=== PATIENT | male | born 1990 | race Caucasian/White ===

== ENCOUNTER 2016-12-07 00:17 | Emergency (ER) | payer OTHER ==
[2016-12-07] MEDS ORDERED: NORMAL SALINE 1,000 ML IV ONE (02:51)
--- NOTE | 2016-12-07 02:52 | ERNOTE ---
Syncope ER HPI Date of Service: 12/07/16 Stated Complaint: passed out at work Time Seen by Provider: 12/07/16 02:43 Source: patient Exam Limitations: no limitations Immunizations: IMMUNIZATION HX Immunizations Up to Date Yes History of Influenza Vaccine Yes Hx Pneumococcal Vaccination No Allergies/Adverse Reactions: Allergies oxycodone HCl [From Percocet] Adverse Reaction (Verified 08/27/16 00:32) Vomiting Home Medications: HOME MEDICATIONS RX: Carbamazepine [Carbamazepine ER] 300 mg PO BID 08/27/16 [Last Taken Unknown] RX: Risperidone 1 mg PO QAM 08/27/16 [Last Taken Unknown] RX: Risperidone 1.5 mg PO HS 08/27/16 [Last Taken Unknown] buPROPion HCL [Wellbutrin XL] 150 mg PO DAILY 08/27/16 [Last Taken Unknown] Trazodone HCl [Oleptro ER] 150 mg PO HS 12/07/16 [Last Taken Unknown] - History of Present Illness Narrative: 26 year old that ate a hamburger tonight for dinner, which was his only meal for the day. He began to feel dizzy and hot, then afterwards experienced a syncopal episode. The period of LOC was unknown. Denies any pain, fevers, chill , palpitations, dyspnea, or N/V/D. He believes that he has had similar symptoms previously. Last week he had the flu. Date (Duration): 12/07/16 Time (Timing): 02:50 Prior Episodes: Present: no prior history Symptoms prior to episode: Present: none Activity at time of episode: Present: standing Character of event: Present: brief (seconds) Location of Injury: Present: none Current Symptoms: Present: back to normal Review of Systems - Review of Systems Constitutional: Present: no symptoms reported EYE: Present: no symptoms reported ENT: Present: no symptoms reported Respiratory: Present: no symptoms reported Cardiology: Present: no symptoms reported Gastrointestinal/Abdominal: Present: nausea, vomiting Genitourinary: Present: no symptoms reported Musculoskeletal: Present: no symptoms reported Skin: Present: no symptoms reported Neurological: Present: no symptoms reported Endocrine: Present: no symptoms reported Hematologic/Lymphatic: Present: no symptoms reported Psych: Present: no symptoms reported - Patient's Past Medical History Patient History - Medical: Depression Patient History - Cardiac/Respiratory: Asthma Patient History - Cancer: No Hx of Cancer Patient History - Surgical Procedures: Ear Tubes, T & A, Other Patient History - Other: None - Social History Living Situations: home Abuse History: No History of abuse Psych History: Hx of Depression Smoking Status: Current every day smoker Alcohol Use: rarely Drug Use: none - Immunizations Immunizations Up to Date: Yes Hx Pneumococcal Vaccination: No History of Influenza Vaccine: Yes Physical Exam - Physical Exam General Appearance: Present: no apparent distress Eye Exam: Normal inspection: bilateral, PERRL: bilateral Ears, Nose, Throat: Present: normal ENT inspection Neck: Present: limited range of motion Respiratory: Present: no respiratory distress Cardiovascular/Chest: Present: regular rate, rhythm Gastrointestinal/Abdominal: Present: nontender, nondistended Back Exam: Present: normal inspection, normal range of motion Extremity Exam: Present: normal inspection, normal range of motion Neurological Exam: Present: alert, oriented, normal mood/affect, 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 - Vital Signs Patient's Vital Signs:: I have reviewed the patient's vital signs. Vital Signs: Vital Signs 12/07/16 12/07/16 12/07/16 01:45 02:14 02:20 Temperature 37.1 C Pulse Rate 71 61 82 Respiratory 18 Rate Blood Pressure 128/77 127/76 O2 Sat by Pulse 98 Oximetry - EKG EKG: NSR EKG read: Interp. by me EKG Comments: normal axis - Progress/Reassessment Chief Complaint: Syncopal Episode Progress:: Improved Progress Note-Subjective: 12/07/16 04:09 Feels less dizzy after getting IV fluids. Now drinking water. Departure Clinical Impression: Syncope and collapse - Departure Disposition: Home self-care Condition: Good Instructions: Syncope, [id number] Print Language: Syriac Additional Instructions: Drink 2 liters of water today. Return to the ED as needed. Referrals: Marian Low DO [Staff Physician] -
[2016-12-07 03:01] LABS: Hematocrit 49.8 % (42.0-52.0); Hemoglobin 17.1 gm/dL (13.5-18.0); Mean Cell Volume 91.7 fl (78-100); Mean Corpuscular Hemoglobin 31.5 pg (27-31); Mean Corpuscular Hgb Conc 34.3 g/dl (32-36); Mean Platelet Volume 10.5 fl (6.0-9.5); Neutrophil # 3.9 K/mm3 (1.3-6.0); Neutrophil % 53.7 % (42-75.0); Platelet Count 149 K/mm3 (150-450); Red Blood Count 5.43 M/mm3 (4.7-6.0); Red Cell Distribution Width 12.7 % (11.5-14.0); White Blood Count 7.2 K/mm3 (4.0-10.5)
[2016-12-07 03:09] LABS: Anion Gap 12.5 mmol/L (6.8-13.8); BUN/Creatinine Ratio 9.6 (9.0-21.6); Calcium * 8.9 mg/dL (7.9-10.9); Carbon Dioxide 27.5 mmol/L (24-32.6); Estimated Creat Clear 119.2
[2016-12-07 03:29] LABS: Urine Bilirubin Negative (NEGATIVE); Urine Blood Negative /ul (NEGATIVE); Urine Ketone Negative (NEGATIVE); Urine Nitrite Negative (NEGATIVE); Urine Protein Negative (NEGATIVE); Urine Specific Gravity 1.025 SP.GR. (1.005-1.030); Urine Urobilinogen Normal (NORMAL); Urine pH 6.5 pH (5.0-7.0)
[2016-12-07 03:35] LABS: Urine Appearance Clear; Urine Bacteria None Seen; Urine Color Dark Yellow; Urine RBC None Seen /hpf (0-5); Urine WBC None Seen /hpf (0-5)
[2016-12-07 03:38] LABS: Cocaine Ur Negative (NEGATIVE); Urine Barbiturate Negative (NEGATIVE); Urine Benzodiazepines Negative (NEGATIVE); Urine Opiates Negative (NEGATIVE); Urine PCP Negative (NEGATIVE); Urine THC Negative (NEGATIVE)
[2016-12-07 04:23] VITALS: BP 136/78
== END 2016-12-07 04:20 | disposition home or self-care (01) ==
LOC: ER 00:17
DX: R55 Syncope and collapse (principal); F17.210 Nicotine dependence, cigarettes, uncomplicated; F32.9 Major depressive disorder, single episode, unspecified
CPT/HCPCS: 36415; 80048; 81001; 85025; 93005; 99282; G0479

== ENCOUNTER 2016-12-10 04:56 | Emergency (ER) | payer OTHER ==
[2016-12-10] MEDS ORDERED: KETOROLAC TROMETHAMINE 60 MG/2 ML VIAL IM ONE ×2 (06:18→06:25)
--- NOTE | 2016-12-10 06:18 | ERNOTE ---
ER Male HPI Date of Service: 12/10/16 Stated Complaint: SEX INJURY ER Male: testicular pain Time Seen by Provider: 12/10/16 05:04 Source: patient Exam Limitations: no limitations Immunizations: IMMUNIZATION HX Immunizations Up to Date Yes History of Influenza Vaccine Yes Hx Pneumococcal Vaccination No Allergies/Adverse Reactions: Allergies oxycodone HCl [From Percocet] Adverse Reaction (Verified 08/27/16 00:32) Vomiting Home Medications: HOME MEDICATIONS Carbamazepine [Carbamazepine ER] 300 mg PO BID 08/27/16 [Last Taken Unknown] Risperidone 1 mg PO QAM 08/27/16 [Last Taken Unknown] Risperidone 1.5 mg PO HS 08/27/16 [Last Taken Unknown] buPROPion HCL [Wellbutrin XL] 150 mg PO DAILY 08/27/16 [Last Taken Unknown] Trazodone HCl [Oleptro ER] 150 mg PO HS 12/07/16 [Last Taken Unknown] Ibuprofen [Motrin] 800 mg PO TID PRN #30 tab 12/10/16 [Last Taken Unknown] - History of Present Illness Narrative: Patient felt a sharp scrotal pain then experienced left scrotal swelling while engaged in the act of intercourse 10 minutes prior to presentation to ED. Review of Systems - Review of Systems Constitutional: Present: no symptoms reported Genitourinary: Present: See HPI - Patient's Past Medical History Patient History - Medical: Depression Patient History - Cardiac/Respiratory: Asthma Patient History - Cancer: No Hx of Cancer Patient History - Surgical Procedures: Ear Tubes, T & A, Other Patient History - Other: None - Social History Living Situations: significant other Abuse History: No History of abuse Psych History: Hx of Depression Smoking Status: Current every day smoker Have you smoked in the past 12 months: Yes Do you dip or chew tobacco: No Alcohol Use: rarely Drug Use: none - Immunizations Immunizations Up to Date: Yes Hx Pneumococcal Vaccination: No History of Influenza Vaccine: Yes Physical Exam - Physical Exam General Appearance: Present: wd/wn, alert, mild distress Respiratory: Present: no respiratory distress, normal breath sounds, chest nontender, lungs clear Cardiovascular/Chest: Present: regular rate, rhythm, no murmur Male Genitals Exam: Present: other - The penis is unaffected. PT is circumsized. There is swelling and tenderness of left testis. No ecchymoses noted. There appears, on palpation to be a collection of fluid between the two testes. ED Progress - Vital Signs Patient's Vital Signs:: I have reviewed the patient's vital signs. Vital Signs: Vital Signs 12/10/16 04:56 Temperature 36.0 C L Pulse Rate 104 H Respiratory 18 Rate Blood Pressure 124/71 O2 Sat by Pulse 96 Oximetry - CT/Ultrasound CT/Ultrasound Narrative: Scrotal U/S reveals a 4.8 X 4.8 hematoma between two testes. No testicular rupture or torsion. Dr. León consulted regarding this case and will see pt next week. Meanwhile pt to have rest, elevation, good support and NSAIDS. - Progress/Reassessment Chief Complaint: Genitourinary Problem Departure Clinical Impression: Scrotal hematoma - Departure Disposition: Home self-care Condition: Good Instructions: Scrotal Hematoma Referrals: Marian Peña ARNP [Primary Care Provider] - Prescriptions: Ibuprofen [Motrin] 800 mg PO TID PRN #30 tab PRN Reason: Pain
[2016-12-10 07:08] VITALS: BP 116/72
== END 2016-12-10 07:07 | disposition home or self-care (01) ==
LOC: ER 04:56
DX: N50.1 Vascular disorders of male genital organs (principal); F17.210 Nicotine dependence, cigarettes, uncomplicated

== ENCOUNTER 2017-05-08 12:59 | Emergency (ER) | payer OTHER ==
[2017-05-08] MEDS ORDERED: ACETAMINOPHEN 500 MG TABLET PO ONE (14:22)
--- NOTE | 2017-05-08 14:41 | ERNOTE ---
Lower Extremity HPI - General Lower Extremities Pain: 1st toe: left Time Seen by Provider: 05/08/17 14:31 Source: patient Exam Limitations: no limitations - Immun/Allergies/Home Medications Immunizations: IMMUNIZATION HX Immunizations Up to Date Yes History of Influenza Vaccine Yes Hx Pneumococcal Vaccination No Allergies/Adverse Reactions: Allergies Allergy/AdvReac Type Severity Reaction Status Date / Time oxycodone HCl [From Percocet] AdvReac Vomiting Verified 05/08/17 13:06 Home Medications: HOME MEDICATIONS Carbamazepine [Carbamazepine ER] 300 mg PO BID 08/27/16 [Last Taken Unknown] buPROPion HCL [Wellbutrin XL] 150 mg PO DAILY 08/27/16 [Last Taken Unknown] risperiDONE [Risperidone] 1 mg PO QAM 08/27/16 [Last Taken Unknown] risperiDONE [Risperidone] 1.5 mg PO HS 08/27/16 [Last Taken Unknown] traZODone HCL [Oleptro ER] 150 mg PO HS 12/07/16 [Last Taken Unknown] Ibuprofen [Motrin] 800 mg PO TID PRN #30 tab 12/10/16 [Last Taken Unknown] Cephalexin Monohydrate [Keflex] 500 mg PO QID #30 capsule 05/08/17 [Last Taken Unknown] Naproxen [Naprosyn] 500 mg PO BID #40 tablet 05/08/17 [Last Taken Unknown] - History of Present Illness Narrative: About a week ago patient the patient dropped a piece of steel on his left big toe hitting at the proximal part of the nail. He was able to keep working with it. Yesterday he got the same nail caught on a concrete step after being in a coffey for a few hours. He taped the nail back down but has had throbbing pain since Review of Systems - Review of Systems Constitutional: Absent: recent illness, fever Respiratory: Absent: shortness of breath Cardiology: Absent: chest pain Gastrointestinal/Abdominal: Absent: nausea, vomiting Genitourinary: Present: no symptoms reported Musculoskeletal: Present: no symptoms reported Neurological: Absent: weakness, numbness - Patient's Past Medical History Patient History - Medical: Depression Patient History - Cardiac/Respiratory: Asthma Patient History - Cancer: No Hx of Cancer Patient History - Surgical Procedures: Ear Tubes, T & A, Other Patient History - Other: None - Social History Living Situations: home Abuse History: No History of abuse Psych History: Hx of Depression Alcohol Use: rarely Drug Use: none - Immunizations Immunizations Up to Date: Yes Hx Pneumococcal Vaccination: No History of Influenza Vaccine: Yes Physical Exam - Physical Exam General Appearance: Present: wd/wn, alert, no apparent distress Respiratory: Present: no respiratory distress Extremity Exam: Present: normal except - - left first toe: no current bleeding or signs of infection, toe nail in place but not attached to nailbed, linear contusion on proximal end of nail Neurological Exam: Present: alert, oriented, normal mood/affect Skin Exam: Present: normal color, warm/dry ED Progress - Vital Signs Patient's Vital Signs:: I have reviewed the patient's vital signs. Vital Signs: Vital Signs 05/08/17 05/08/17 13:03 14:18 Temperature 37.3 C 37.1 C Pulse Rate 84 81 Respiratory 12 14 Rate Blood Pressure 125/78 120/76 O2 Sat by Pulse 99 96 Oximetry - Progress/Reassessment Chief Complaint: Foot Injury/Pain Departure Clinical Impression: Nail avulsion, toe Qualifiers: Encounter type: initial encounter Qualified Code(s): S91.209A - Unspecified open wound of unspecified toe(s) with damage to nail, initial encounter Contusion of toe of left foot Qualifiers: Encounter type: initial encounter Toe: great toe Damage to nail status: with damage Qualified Code(s): S90.212A - Contusion of left great toe with damage to nail, initial encounter - Departure Disposition: Home self-care Condition: Good Instructions: Nail Avulsion Additional Instructions: keep the toenail taped down and clean, the nail will come off eventually, if you have increased pain and swelling fill the antibiotic prescription Referrals: Marian Low DO [Staff Physician] - Prescriptions: Cephalexin Monohydrate [Keflex] 500 mg PO QID #30 capsule Naproxen [Naprosyn] 500 mg PO BID #40 tablet
[2017-05-08 15:32] VITALS: BP 118/78
== END 2017-05-08 14:56 | disposition home or self-care (01) ==
LOC: ER 12:59
DX: S91.209A Unspecified open wound of unspecified toe(s) with damage to nail, initial encounter (principal); S90.212A Contusion of left great toe with damage to nail, initial encounter; X58.XXXA Exposure to other specified factors, initial encounter; Y93.9 Activity, unspecified; Y92.9 Unspecified place or not applicable

== ENCOUNTER 2017-10-16 18:57 | Emergency (ER) | payer BC, OTHER ==
[2017-10-16 19:10] VITALS: BP 126/84
--- NOTE | 2017-10-16 19:46 | ERNOTE ---
Medical Problem HPI - Narrative Date of Service: 10/16/17 - General Chief Complaint: General Assessment Time Seen by Provider: 10/16/17 19:24 Source: patient, RN notes reviewed Exam Limitations: no limitations - Immun/Allergies/Home Medications Immunizations: IMMUNIZATION HX Immunizations Up to Date Yes History of Influenza Vaccine No Hx Pneumococcal Vaccination No Allergies/Adverse Reactions: Allergies oxycodone HCl [From Percocet] Adverse Reaction (Verified 05/08/17 13:06) Vomiting - History of Present History Narrative: 27 year old male presents to the ED for a large abrasion to his abdomen. This occurred earlier today when he fell out of the back of a tack picker truck while helping a friend move. He believes he may have scraped himself on a dresser. His tetanus is current. He had to leave work because the wound was painful when he was bending over. Date (Duration): 10/16/17 Review of Systems - Review of Systems Constitutional: Absent: recent illness, fever, malaise EYE: Present: no symptoms reported ENT: Present: no symptoms reported Respiratory: Present: no symptoms reported Cardiology: Absent: chest pain, syncope Gastrointestinal/Abdominal: Absent: nausea, vomiting, abdominal pain Genitourinary: Present: no symptoms reported Musculoskeletal: Present: muscle pain. Absent: joint pain, joint swelling Skin: Absent: rash, lumps, change in color Neurological: Absent: headache, dizziness/light-headedness, weakness, numbness, tingling Endocrine: Present: no symptoms reported Hematologic/Lymphatic: Absent: easy bruising, easy bleeding Psych: Present: no symptoms reported - Patient's Past Medical History Patient History - Medical: Depression Patient History - Cardiac/Respiratory: Asthma Patient History - Cancer: No Hx of Cancer Patient History - Surgical Procedures: Ear Tubes, T & A, Other Patient History - Other: None - Family History Mother Family History - Medical: Arthritis, Rheumatoid Arthritis Family History - Cancer: No pertinent family hx - Social History Living Situations: alone Abuse History: No History of abuse Psych History: Hx of Depression Smoking Status: Current every day smoker Have you smoked in the past 12 months: Yes Do you dip or chew tobacco: No Patient requests Smoking Cessation Consult: No Initiate information on Smoking Cessation: No Alcohol Use: none Drug Use: none - Immunizations Immunizations Up to Date: Yes Hx Pneumococcal Vaccination: No History of Influenza Vaccine: No Physical Exam - Physical Exam General Appearance: Present: wd/wn, alert, no apparent distress Head Exam: Present: normal inspection, no evidence of injury Neck: Present: normal inspection, nontender, supple Respiratory: Present: no respiratory distress, normal breath sounds, no accessory muscle use, lungs clear Cardiovascular/Chest: Present: regular rate, rhythm, no murmur Gastrointestinal/Abdominal: Present: nontender, nondistended, soft Extremity Exam: Present: normal inspection, normal range of motion Neurological Exam: Present: alert, oriented, normal mood/affect, no motor/ sensory deficits Skin Exam: Present: normal color, warm/dry, other - Moderate sized abrasion to right lower abdomen ED Progress - Vital Signs Patient's Vital Signs:: I have reviewed the patient's vital signs. Vital Signs: Vital Signs 10/16/17 19:04 Temperature 37.0 C Pulse Rate 81 Respiratory 18 Rate Blood Pressure 126/84 O2 Sat by Pulse 99 Oximetry - Progress/Reassessment Chief Complaint: General Assessment Progress:: Improved Departure Clinical Impression: Abrasion - Departure Disposition: Home self-care Condition: Good Instructions: Form - Excuse from Work, School, or Physical Activity, Abrasion, [id number] Additional Instructions: Keep wound clean, wash with mild soap and water twice a day Apply antibiotic ointment to keep moist as needed, cover with dressing as needed Tylenol and/or ibuprofen for pain
== END 2017-10-16 20:00 | disposition home or self-care (01) ==
LOC: ER 18:57
DX: W22.03XA Walked into furniture, initial encounter; S30.811A Abrasion of abdominal wall, initial encounter; F17.200 Nicotine dependence, unspecified, uncomplicated; Y92.812 Truck as the place of occurrence of the external cause
CPT/HCPCS: 99282